=== PATIENT | male | born 1955 | race American Indian/Alaskan Native ===

== ENCOUNTER 2017-02-15 08:02 | Inpatient (IN) | payer OTHER ==
[2017-02-15 08:03] VITALS: BMI 24.7
[2017-02-15] MEDS ORDERED: Sodium Chloride 0.9% 1,000 ML IV ONE (08:36)
[2017-02-15] MEDS ORDERED: Sodium Chloride 0.9% 1,000 ML ONE ×2 (08:54→10:55)
[2017-02-15] MEDS ORDERED: Morphine 4 MG/ML VIAL ONE ×2 (08:54→10:55)
[2017-02-15 09:13] LABS: LYMPH # 0.6 K/uL (1.0-4.3); NRBC % 0.1 % (0.0-2.0)
--- NOTE | 2017-02-15 09:19 | C.PDOC ---
History Of Present Illness 61 y/o male presents to the ED complaining of headache for several days and bilateral upper arm pain. Patient reports history of stage 4 colon cancer, s/p resection, and states he is undergoing chemotherapy. He notes that 3 weeks ago he was switched to PO chemotherapy and since then he has experienced persistent headache which he thinks may be a side effect. Patient denies dizziness, vision changes, fever, neck pain, chest pain, shortness of breath, abdominal pain, vomiting, or diarrhea. Time Seen by Provider: 02/15/17 08:05 Chief Complaint (Nursing): Headache History Per: Patient History/Exam Limitations: no limitations Onset/Duration Of Symptoms: Days, Gradual, Persistent Current Symptoms Are (Timing): Still Present Recent travel outside of the [place]: No Past Medical History Reviewed: Historical Data, Nursing Documentation, Vital Signs Vital Signs: Last Vital Signs Temp 97.4 F L 02/15/17 08:09 Pulse 84 02/15/17 08:09 Resp 18 02/15/17 08:09 BP 177/91 H 02/15/17 08:09 Pulse Ox 100 02/15/17 09:25 - Medical History Other PMH: stage 4 colon cancer Surgical History: Appendectomy - [facility] Procedures OTHER LOCAL DESTRUC SKIN (04/05/13) VENOUS CATHETERIZATION NEC (04/05/13) Family History: States: No Known Family Hx - Social History Hx Tobacco Use: Yes (heavy smoker) Hx Alcohol Use: Yes (social) Hx Substance Use: Yes (marijuana) - Immunization History Hx Tetanus Toxoid Vaccination: No Hx Influenza Vaccination: No Hx Pneumococcal Vaccination: No Review Of Systems Except As Marked, All Systems Reviewed And Found Negative. Constitutional: Negative for: Fever Eyes: Negative for: Vision Change Cardiovascular: Negative for: Chest Pain Respiratory: Negative for: Shortness of Breath Gastrointestinal: Negative for: Vomiting, Abdominal Pain, Diarrhea Musculoskeletal: Positive for: Arm Pain (bilateral). Negative for: Neck Pain Neurological: Positive for: Headache. Negative for: Dizziness Physical Exam - Physical Exam Appears: Non-toxic, No Acute Distress, Other (in mild pain; cachectic) Skin: Normal Color, Warm, Dry, No Rash Head: Atraumatic, Normacephalic Eye(s): bilateral: Normal Inspection, PERRL, EOMI Neck: Normal ROM, Supple Chest: Symmetrical Cardiovascular: Rhythm Regular Respiratory: Normal Breath Sounds, No Rales, No Rhonchi, No Wheezing Gastrointestinal/Abdominal: Soft, No Tenderness, No Guarding, No Rebound, Other (well-healed midline surgical scar; large palpable mass under umbilicus) Extremity: Normal ROM, Tenderness (diffuse, upper arms), No Deformity, No Swelling, No Other (erythema) Pulses: Left Radial: Normal, Right Radial: Normal Neurological/Psych: Oriented x3, Normal Speech, Normal Cognition, Normal Sensation ED Course And Treatment - Laboratory Results Result Diagrams: 02/15/17 09:09 02/15/17 09:09 O2 Sat by Pulse Oximetry: 100 (ra) Pulse Ox Interpretation: Normal Progress Note: Blood work and urinalysis were ordered. Patient was treated with Morphine IVP and IV fluids. 11:30AM- Patient's oncologist Dr. Drake has seen patient in ED, would like him admitted for pain control, hydration under hospitalist service. - Scribe Statement The provider has reviewed the documentation as recorded by the Scribe (Marielle Morales) Provider Attestation: All medical record entries made by the Scribe were at my direction and personally dictated by me. I have reviewed the chart and agree that the record accurately reflects my personal performance of the history, physical exam, medical decision making, and the department course for this patient. I have also personally directed, reviewed, and agree with the discharge instructions and disposition.
[2017-02-15 09:21] LABS: CHLORIDE 93 mmol/L (98-107); POTASSIUM 4.3 mmol/L (3.6-5.2); SODIUM 135 mmol/L (132-148)
[2017-02-15 09:23] LABS: ALKALINE PHOSPHATASE 102 U/L (38-126); AST/SGOT 34 U/L (17-59); BILIRUBIN,TOTAL 0.6 mg/dL (0.2-1.3); CARBON DIOXIDE 27 mmol/L (22-30); GFR AFRICAN-AMERICAN > 60; TOTAL PROTEIN 8.7 g/dL (6.3-8.3)
[2017-02-15 09:24] LABS: ALB/GLOB RATIO 0.7 (1.0-2.1); ALT/SGPT 15 U/L (21-72); BLOOD UREA NITROGEN 12 mg/dL (9-20); CALCIUM 8.7 mg/dl (8.6-10.4); GLUCOSE,RANDOM 110 mg/dL (75-110)
[2017-02-15 09:26] LABS: BASO % 0.7 % (0.0-2.0); EOS % 0.3 % (0.0-4.0); HEMATOCRIT 35.3 % (35.0-51.0); LYMPH % 9.5 % (20.0-40.0); MEAN CORPUSCULAR HEMOGLOBIN 26.1 pg (27.0-31.0); MEAN CORPUSCULAR HGB CONC 33.5 g/dL (33.0-37.0); MEAN PLATELET VOLUME 7.1 fL (7.2-11.7); MONO # 0.4 K/uL (0.0-0.8); MONO % 5.7 % (0.0-10.0); PLATELET COUNT 374 K/uL (130-400); RED CELL DISTRIBUTION WIDTH 20.5 % (11.5-14.5); WHITE BLOOD COUNT 6.6 K/uL (4.8-10.8)
[2017-02-15 09:32] LABS: MEAN CELL VOLUME 77.9 fL (80.0-94.0)
[2017-02-15 10:03] LABS: EOSINOPHIL 2 % (0-4); NEUTROPHIL 72 % (50-75); TOTAL CELLS COUNTED 100
[2017-02-15] MEDS ORDERED: Sodium Chloride 0.9% 500 ML IV ONE (10:33)
[2017-02-15] MEDS ORDERED: Oxycodone/Acetaminophen 5/325 mg Tab ONE (12:27)
[2017-02-15] MEDS: Oxycodone/Acetaminophen 5/325 mg Tab PO PRN ×3 (12:32→21:20)
[2017-02-15 12:37] LABS: RBC URINE 49 /hpf (0-3); URINE BACTERIA RARE (<OCC); URINE BILIRUBIN NEGATIVE (NEGATIVE); URINE BLOOD 2+ (NEGATIVE); URINE COLOR Straw (YELLOW); URINE GLUCOSE (UA) NORMAL (Normal); URINE KETONE NEGATIVE (NEGATIVE); URINE LEUKOCYTE ESTERASE NEG Leu/uL (Negative); URINE PROTEIN NEGATIVE (NEGATIVE); URINE UROBILINOGEN NORMAL mg/dL (0.2-1.0); WBC URINE 1 /hpf (0-5)
--- NOTE | 2017-02-15 15:55 | CON ---
DATE: 02/15/2017 REASON FOR CONSULTATION: Metastatic colon cancer. HISTORY OF PRESENT ILLNESS: This is a 61-year-old male, well known to me for the past 3 years, who w as started on chemotherapy for metastatic colon cancer in 2013, 4 years ago. The patient has been to lerating his chemotherapy well and was doing well when until more recently he was found to have progr ession of disease on his last chemotherapy regimen, and about 3 weeks ago, it was changed to Stivarga chemotherapy. Since then, he has been having some headache, weakness, and inability to walk. The p atient quit his job yesterday. Also feels very tired and complains of aches and pains throughout his body. PAST MEDICAL HISTORY: Of hypertension and metastatic colon cancer. PAST SURGICAL HISTORY: and appendectomy. The patient says he has been eating well, but has been losing weight. ALLERGIES: No known drug allergies. MEDICATIONS AT HOME: Only on Stivarga and Motrin and also for constipation, as-needed basis. PHYSICAL EXAMINATION VITAL SIGNS: Temperature is 97.4, blood pressure is 180/90, pulse of 80, respirations 18. HEAD, EARS, EYES, NOSE, AND THROAT: Pale. No scleral icterus was seen. NECK: Supple. CHEST: Bilateral air entry is fair. CARDIOVASCULAR: S1 and S2. Regular rate and rhythm. ABDOMEN: Distended, hard with metastatic disease. EXTREMITIES: Emaciated. LABORATORY DATA: Show a white count of 6.6, hemoglobin of 11.8, platelets of 374. BUN of 12, creati nine of 0.7. ASSESSMENT AND PLAN: A 61-year-old male with metastatic disease, colon cancer, appears to be ending his treatment at this time. The patient seems to be progressing on all kinds of chemotherapy. This was discussed with him. His weakness, pain are all related to progression of his cancer. Hospice wa s offered to the patient, but he does not want that at this time. He wants to discuss this with his daughters, who both are at bedside, and let me know of his choice. The patient will be admitted for pain control. We will start him on fentanyl 25 mcg subcutaneous every 72 hours and also Percocet 5/3 25 mg p.o. every 4 hours for breakthrough pain. Depending on the results of that, we will make furth er decisions. We will await the patient's decision for further disposition. We will admit under hos pitalist. Thank you for the consult. We will follow the patient with you. Erica Drake MD cc: [id number] TT: 02/15/2017 15:54:25 Confirmation # [id number] Dictation # [id number] fn
[2017-02-15] MEDS: HYDROmorphone 0.5 mg/0.5 ml ISec IVP PRN ×2 (16:12→19:55)
[2017-02-15] MEDS ORDERED: Sodium Chloride Nasal 0.65% Soln (30ml) NAS PRN (16:30)
--- NOTE | 2017-02-15 16:36 | CP.PCM.HP ---
History of Present Illness - History of Present Illness History of Present Illness: Internal medicine H & P for Dr. Kevon Nash, PGY-1 Pt S & E at bedside. 61M w/PMH sig for colon CA s/p resection, currently on chemo admitted for abdominal pain, B/L upper extremity pain. Patient reports he has been treated for Colon CA x 3 yrs, recently switching from IV chemo to PO chemo 3 wks ago. Since that time, patient has noted increasing symptoms attributable to side effects of PO chemo drugs. Patient states that for past 2 days, he has had a throbbing headache, abdominal pain - that was relieved when pt moved his bowels today, Low back pain, and B/L medial upper extremity pain. Pain is severe, "pins/needles" sensation, radiates down to elbow, constant. No alleviating or aggravating factors identified. Pt attempted pain relief with Advil and Ibuprofen without resolution. Pain has been so intense pt has been unable to sleep x 2 days. Admits to numbness/tingling of hands/feet (chronic since onset of chemo), abdominal pain (relieved by BM), recent weight loss (30 lbs/1mo), poor appetite, dry nasal passages. Denies N/V/F/C, SOB, CP, diarrhea, sore throat, cough, rhinnorhea, cough. PMH: Colon CA - Stage IV PSH: appendectomy (2013), colon resection (2013) All: NKA SH: Admits to social ETOH use (avg 10-20 drinks per mo), admits to tobacco use 1 /2ppd x 45 yrs, admits to occasional MJ use. PMD: [facility]: [facility] in Onc: Drake Present on Admission - Present on Admission Any Indicators Present on Admission: No History of DVT/PE: No History of Uncontrolled Diabetes: No Urinary Catheter: No Decubitus Ulcer Present: No Review of Systems - Review of Systems All systems: reviewed and no additional remarkable complaints except - Constitutional Constitutional: Headache, Weight Loss. absent: Chills, Fever, Increased Appetite, Weakness - EENT Eyes: absent: Change in Vision Ears: absent: Dizziness Nose/Mouth/Throat: absent: Sore Throat - Cardiovascular Cardiovascular: absent: Chest Pain, Diaphoresis, Palpitations - Respiratory Respiratory: absent: Cough - Gastrointestinal Gastrointestinal: Abdominal Pain, Constipation (occasional). absent: Nausea, Vomiting - Genitourinary Genitourinary: absent: Change in Urinary Stream, Dysuria - Musculoskeletal Musculoskeletal: Numbness, Tingling - Neurological Neurological: Numbness, Paresthesias, Tingling. absent: Dizziness - Psychiatric Psychiatric: Abnormal Sleep Pattern Past Patient History - Past Medical History & Family History Past Medical History?: Yes - Past Social History Smoking Status: Heavy Smoker > 10 Cigarettes Daily - CARDIAC Hx Cardiac Disorders: No - PULMONARY Hx Respiratory Disorders: No - NEUROLOGICAL Hx Neurological Disorder: No - HEENT Hx HEENT Problems: No - RENAL Hx Chronic Kidney Disease: No - ENDOCRINE/METABOLIC Hx Endocrine Disorders: No - HEMATOLOGICAL/ONCOLOGICAL Hx Blood Disorders: Yes Hx Cancer: Yes Hx Chemotherapy: Yes - INTEGUMENTARY Hx Dermatological Problems: No - MUSCULOSKELETAL/RHEUMATOLOGICAL Hx Falls: No - GASTROINTESTINAL Hx Gastrointestinal Disorders: Yes Hx Bowel Surgery: Yes Other/Comment: hx; Colon Cancer. On chemotherapy second cycle - GENITOURINARY/GYNECOLOGICAL Hx Genitourinary Disorders: No - PSYCHIATRIC Hx Substance Use: Yes (marijuana) - SURGICAL HISTORY Hx Appendectomy: Yes - ANESTHESIA Hx Anesthesia: Yes Hx Anesthesia Reactions: No Hx Malignant Hyperthermia: No Meds Allergies/Adverse Reactions: Allergies Allergy/AdvReac Type Severity Reaction Status Date / Time No Known Allergies Allergy Verified 02/15/17 08:13 Physical Exam - Constitutional Appears: Non-toxic, No Acute Distress, Cachectic - Head Exam Head Exam: ATRAUMATIC, NORMAL INSPECTION, NORMOCEPHALIC - Eye Exam Eye Exam: EOMI, Normal appearance, PERRL Pupil Exam: NORMAL ACCOMODATION, PERRL - ENT Exam ENT Exam: Mucous Membranes Dry, Normal Exam - Neck Exam Neck exam: Positive for: Full Rom, Normal Inspection - Respiratory Exam Respiratory Exam: Clear to Auscultation Bilateral, NORMAL BREATHING PATTERN. absent: Rales, Rhonchi, Wheezes, Respiratory Distress, Stridor - Cardiovascular Exam Cardiovascular Exam: REGULAR RHYTHM, +S1, +S2 - GI/Abdominal Exam GI & Abdominal Exam: Hyperactive Bowel Sounds, Mass (periumbical in LLQ more, hard 3 x 4 cm protruberant mass), Soft. absent: Distended, Firm, Guarding, Hernia, Pulsatile Mass, Rebound, Rigid, Tenderness - Extremities Exam Extremities exam: Positive for: full ROM, normal inspection - Back Exam Back exam: FULL ROM, NORMAL INSPECTION. absent: paraspinal tenderness, tenderness - Neurological Exam Neurological exam: Alert, CN II-XII Intact, Oriented x3 - Psychiatric Exam Psychiatric exam: Normal Affect, Normal Mood - Skin Skin Exam: Dry, Intact, Normal Color, Warm Results - Vital Signs Recent Vital Signs: Last Vital Signs Temp 98 F 02/15/17 15:23 Pulse 84 02/15/17 15:23 Resp 20 02/15/17 15:23 BP 209/101 H 02/15/17 15:23 Pulse Ox 98 02/15/17 15:23 - Labs Result Diagrams: 02/15/17 09:09 02/15/17 09:09 Labs: Laboratory Results - last 24 hr 02/15/17 15:22 POC Glucose (mg/dL) 118 H Assessment & Plan - Assessment and Plan (Free Text) Assessment: Colon CA/Abdominal pain Admit to med-surg VS Q4H No leukocytosis Bandemia - 12 Electrolytes WNL U/A pos for 2+ blood IVF Colace Dilaudid 0.5mg Q4H PRN Fentanyl patch Q72H Percocet 1 tab Q4H PRN Onc following- Drake Paresthesias Gabapentin 100mg TID Malnutrition/wt loss/poor appetite Boost supplements 6 small meals per day- HHD Marinol Dry mucus membranes Nasal spray PRN PO care High blood pressure BP 209/101 Monitor no previous history of HTN as per pt GI/DVT ppx Pepcid Heparin SCDs Dispo Full Code Eldest daughter- Isis to be medical decision maker if pt incapcitated Pain mgmt Activity as tolerated OOBTC Possible d/c tomorrow DW attending - Date & Time Date: 02/15/17 Time: 15:30
[2017-02-15] MEDS: Sodium Chloride 0.9% 1,000 ML IV SCH (16:42)
[2017-02-16] MEDS: Sodium Chloride 0.9% 1,000 ML IV SCH ×4 (02:30→19:56)
[2017-02-16] MEDS: HYDROmorphone 0.5 mg/0.5 ml ISec IVP PRN ×6 (03:40→21:20)
[2017-02-16] MEDS: Oxycodone/Acetaminophen 5/325 mg Tab PO PRN ×3 (07:30→19:51)
[2017-02-16 07:34] LABS: BASO % 0.5 % (0.0-2.0); EOS % 0.2 % (0.0-4.0); HEMATOCRIT 34.8 % (35.0-51.0); LYMPH % 16.2 % (20.0-40.0); MEAN CELL VOLUME 77.8 fL (80.0-94.0); MEAN CORPUSCULAR HEMOGLOBIN 25.1 pg (27.0-31.0); MEAN CORPUSCULAR HGB CONC 32.2 g/dL (33.0-37.0); MEAN PLATELET VOLUME 7.6 fL (7.2-11.7); MONO # 0.4 K/uL (0.0-0.8); MONO % 5.9 % (0.0-10.0); NRBC % 0.1 % (0.0-2.0); RED CELL DISTRIBUTION WIDTH 20.5 % (11.5-14.5); WHITE BLOOD COUNT 6.4 K/uL (4.8-10.8)
[2017-02-16 08:01] LABS: CHLORIDE 94 mmol/L (98-107)
[2017-02-16 08:02] LABS: POTASSIUM 4.3 mmol/L (3.6-5.2); SODIUM 129 mmol/L (132-148)
[2017-02-16 08:04] LABS: GFR AFRICAN-AMERICAN > 60
[2017-02-16 08:05] LABS: ALB/GLOB RATIO 0.7 (1.0-2.1); ALKALINE PHOSPHATASE 95 U/L (38-126); ALT/SGPT 19 U/L (21-72); AST/SGOT 34 U/L (17-59); BILIRUBIN,TOTAL 0.5 mg/dL (0.2-1.3); BLOOD UREA NITROGEN 8 mg/dL (9-20); CALCIUM 8.3 mg/dl (8.6-10.4); CARBON DIOXIDE 20 mmol/L (22-30); GLUCOSE,RANDOM 114 mg/dL (75-110); TOTAL PROTEIN 8.2 g/dL (6.3-8.3)
--- NOTE | 2017-02-16 11:19 | PN ---
DATE: 02/16/2017 SUBJECTIVE: The patient with metastatic colon cancer, feels much better today after pain management. OBJECTIVE: VITAL SIGNS: Show temperature of 97, blood pressure is 144/76, pulse 72, respirations 18. HEENT: PERRLA. No scleral icterus is seen. NECK: Supple. CHEST: Bilateral air entry is decreased. CARDIOVASCULAR: S1, S2, regular rate and rhythm. ABDOMEN: Distended. HEART: Full of metastatic disease. EXTREMITIES: Cachectic. LABORATORY DATA: Labs show white count of 6.4, hemoglobin of 11.2, platelets of 392. ASSESSMENT AND PLAN: A 61-year-old male with metastatic colon cancer. The patient needs pain management at this time, whi ch is ongoing. Once the patient is adequately controlled with the pain, he can be discharged on fent anyl and Percocet as an outpatient. We will follow up as outpatient. Thank you for the consult. We will follow the patient with you. Erica Drake MD cc: [id number] TT: 02/16/2017 11:18:23 Confirmation # [id number] Dictation # [id number] an
[2017-02-16] MEDS: oxyCODONE 10 mg ER Tab (oxyCONTIN) PO SCH ×2 (12:26→21:20)
[2017-02-16] MEDS ORDERED: Iohexol 350mg/ml 100 ML ONE (12:48)
--- NOTE | 2017-02-16 14:27 | CT ---
PROCEDURE: CT HEAD WITH AND WITHOUT CONTRAST HISTORY: R/O mets COMPARISON: None available. TECHNIQUE: Axial computed tomography images were obtained through the head/brain with and without intravenous contrast enhancement. Contrast dose: 100 mL Omnipaque 350. Radiation dose: Total exam DLP = 783.19 mGy-cm. FINDINGS: HEMORRHAGE: No intracranial hemorrhage. BRAIN: No mass, mass effect or edema. No abnormal intracranial enhancement. No atrophy or chronic microvascular ischemic changes. VENTRICLES: Unremarkable. No hydrocephalus. CALVARIUM: Unremarkable. SINUSES: Unremarkable as visualized. No significant inflammatory changes. MASTOID AIR CELLS: Unremarkable as visualized. No mastoid effusion. OTHER FINDINGS: None. IMPRESSION: No evidence of acute pathology in the brain. No evidence of enhancing mass lesion mass effect or midline shift.
--- NOTE | 2017-02-16 15:02 | CT ---
PROCEDURE: CT Thoracic Spine with contrast HISTORY: R/o mets COMPARISON: None. TECHNIQUE: Axial computed tomography images were obtained of the thoracic spine were obtained, following administration of intravenous iodinated contrast. Coronal and sagittal reformatted images were created and reviewed. Intravenous contrast dose: [address] of the head was obtained concurrently and reported separately. Radiation dose: Total exam DLP = 947.7 mGy-cm. FINDINGS: VERTEBRAE: No evidence of acute fracture or destructive bony lesion. Normal alignment of the thoracic vertebrae.. DISCS/SPINAL CANAL/NEURAL FORAMINA: Within the limits of the CT technique, no disc herniation seen. Moderate degenerative disc changes and multilevel small osteophyte formation. No central canal or neural foraminal stenosis.. PARASPINAL SOFT TISSUES: There is 1.2 centimeter noncalcified nodule adjacent to the left hilum image 54 series 2 may represent prominent lymph node versus lung nodule. No evidence of pleural effusion or pneumothorax in the visualized portion of the chest.. The thyroid gland is mildly enlarged. There is 1.5 millimeter low density nodule at the left thyroid lobe. ENHANCEMENT: No evidence of enhancing mass lesion at or adjacent to the thoracic spine noted in this exam. OTHER FINDINGS: Unremarkable. IMPRESSION: No CT evidence of destructive enhancing mass lesion at the thoracic spine to suggest osseous metastasis. [id number] degenerative disc changes. Incidentally noted is 1.2 millimeter nodule or prominent lymph node adjacent to the left hilum. Mildly enlarged thyroid gland. 1.4 centimeter low-attenuation nodule at the left thyroid lobe.
--- NOTE | 2017-02-16 15:53 | CP.PCM.PN ---
Subjective - Date & Time of Evaluation Date of Evaluation: 02/16/17 Time of Evaluation: 10:45 - Subjective Subjective: Internal medicine progress note for Dr. Clemente Nash, PGY-1 Pt S & E at bedside. Pt reports resolution of B/L upper/medial arm pain, increased low back pain - was instructed on how to ask for pain regimen. Pt is tolerating diet, slept ok until aroused by back pain. Continues with mild headache. Had nausea after a pain medication was administered - resolved. Denies N/V/F/C, SOB, CP, abdominal pain. Objective - Vital Signs/Intake and Output Vital Signs (last 24 hours): Temp Pulse Resp BP Pulse Ox 97.6 F 73 20 195/93 H 100 02/16/17 08:33 02/16/17 08:33 02/16/17 08:33 02/16/17 08:33 02/16/17 08:33 - Medications Medications: Current Medications Acetaminophen (Tylenol 325mg Tab) 650 mg PO Q6 PRN PRN Reason: Headache Acetaminophen (Tylenol 325mg Tab) 650 mg PO Q6 PRN PRN Reason: Pain, Mild (1-3) Dronabinol (Marinol) 2.5 mg PO BID [facility] Last Admin: 02/16/17 09:30 Dose: 2.5 mg Famotidine (Pepcid) 20 mg PO BID [facility] Last Admin: 02/16/17 09:30 Dose: 20 mg Fentanyl (Duragesic) 1 patch TD Q72H [facility] Last Admin: 02/15/17 14:11 Dose: 1 patch Gabapentin (Neurontin) 100 mg PO TID [facility] Last Admin: 02/16/17 14:06 Dose: 100 mg Heparin Sodium (Porcine) (Heparin) 5,000 units SC Q12 [facility] Last Admin: 02/16/17 09:30 Dose: 5,000 units Hydromorphone HCl (Dilaudid) 0.5 mg IVP Q4H PRN PRN Reason: Pain, severe (8-10) Last Admin: 02/16/17 12:11 Dose: 0.5 mg Sodium Chloride (Sodium Chloride 0.9%) 1,000 mls @ 100 mls/hr IV .Q10H [facility] Last Admin: 02/16/17 14:03 Dose: Not Given Ondansetron HCl (Zofran Inj) 4 mg IVP Q6 PRN PRN Reason: Nausea/Vomiting Last Admin: 02/16/17 08:25 Dose: 4 mg Oxycodone HCl (Oxycontin Extended Release Tab) 10 mg PO Q12 [facility] Stop: 02/19/17 11:46 Last Admin: 02/16/17 12:26 Dose: Not Given Oxycodone/Acetaminophen (Percocet 5/325 Mg Tab) 1 tab PO Q4H PRN PRN Reason: Pain, Mild (1-3) Stop: 02/18/17 12:13 Last Admin: 02/16/17 11:12 Dose: 1 tab Sodium Chloride (Garland Baby Saline 30 Ml) 0 ml AMANDA Q4H PRN PRN Reason: Dry nasal passages Last Admin: 02/15/17 22:24 Dose: 1 u - Labs Labs: 02/16/17 07:26 02/16/17 07:26 - Constitutional Appears: Non-toxic, No Acute Distress, Cachectic - Head Exam Head Exam: ATRAUMATIC, NORMAL INSPECTION, NORMOCEPHALIC - Eye Exam Eye Exam: EOMI, Normal appearance, PERRL Pupil Exam: NORMAL ACCOMODATION, PERRL - ENT Exam ENT Exam: Mucous Membranes Moist, Normal Exam - Neck Exam Neck Exam: Full ROM, Normal Inspection - Respiratory Exam Respiratory Exam: Clear to Ausculation Bilateral, NORMAL BREATHING PATTERN. absent: Chest Wall Tenderness, Decreased Breath Sounds, Rhonchi, Wheezes, Stridor Additional comments: Left chest wall with portacath under skin- non tender, no erythema or drainage. - Cardiovascular Exam Cardiovascular Exam: REGULAR RHYTHM, +S1, +S2 - GI/Abdominal Exam GI & Abdominal Exam: Soft, Mass (3 x 4 cm hard mass periumbilical at the 5 o' clock position, non tender.), Normal Bowel Sounds. absent: Distended, Firm, Guarding, Rigid, Tenderness - Extremities Exam Extremities Exam: Full ROM, Normal Inspection - Back Exam Back Exam: NORMAL INSPECTION. absent: tenderness - Neurological Exam Neurological Exam: Alert, Awake, CN II-XII Intact, Oriented x3 Neuro motor strength exam: Left Upper Extremity: 5, Right Upper Extremity: 5, Left Lower Extremity: 5, Right Lower Extremity: 5 - Psychiatric Exam Psychiatric exam: Normal Affect, Normal Mood - Skin Skin Exam: Dry, Intact, Normal Color, Warm Assessment and Plan - Assessment and Plan (Free Text) Assessment: Colon CA/Abdominal pain No leukocytosis Bandemia - 12 Electrolytes WNL U/A pos for 2+ blood IVF Colace Dilaudid 0.5mg Q4H PRN severe pain Fentanyl patch Q72H Percocet 1 tab Q4H PRN moderate pain Started Oxycontin extended release 10mg Q12H FELIPE Tylenol 650 mg PRN mild pain Onc following- Drake CT spine neg for mets, findings of No CT evidence of destructive enhancing mass lesion at the thoracic spine to suggest osseous metastasis. Mild-to- moderate degenerative disc changes. Incidentally noted is 1.2 millimeter nodule or prominent lymph node adjacent to the left hilum. Mildly enlarged thyroid gland. 1.4 centimeter low-attenuation nodule at the left thyroid lobe. CT brain neg for mets Paresthesias/Back pain Gabapentin 100mg TID Heating pad BenGay to low back- topical Pain mgmt as above Malnutrition/wt loss/poor appetite Boost supplements 6 small meals per day- HHD Marinol Dry mucus membranes Nasal spray PRN PO care High blood pressure BP 209/101 Started amlodipine 5mg daily no previous history of HTN as per pt Monitor GI/DVT ppx Pepcid Heparin SCDs Dispo Full Code Eldest daughter- Isis to be medical decision maker if pt incapcitated Pain mgmt Activity as tolerated OOBTC Possible d/c tomorrow DW attending
[2017-02-16] MEDS: Capsaicin 0.025% Cream (60 gm) TOP SCH (19:53)
[2017-02-17] MEDS: HYDROmorphone 0.5 mg/0.5 ml ISec IVP PRN ×3 (01:13→11:14)
[2017-02-17 07:30] LABS: BASO % 0.5 % (0.0-2.0); EOS % 0.2 % (0.0-4.0); HEMATOCRIT 33.6 % (35.0-51.0); LYMPH # 1.2 K/uL (1.0-4.3); LYMPH % 18.4 % (20.0-40.0); MEAN CELL VOLUME 77.3 fL (80.0-94.0); MEAN CORPUSCULAR HEMOGLOBIN 25.2 pg (27.0-31.0); MEAN CORPUSCULAR HGB CONC 32.5 g/dL (33.0-37.0); MEAN PLATELET VOLUME 7.3 fL (7.2-11.7); MONO # 0.6 K/uL (0.0-0.8); MONO % 8.6 % (0.0-10.0); RED CELL DISTRIBUTION WIDTH 20.3 % (11.5-14.5); WHITE BLOOD COUNT 6.5 K/uL (4.8-10.8)
[2017-02-17 07:40] LABS: CHLORIDE 91 mmol/L (98-107); SODIUM 129 mmol/L (132-148)
[2017-02-17 07:41] LABS: GFR AFRICAN-AMERICAN > 60; POTASSIUM 4.3 mmol/L (3.6-5.2)
[2017-02-17 07:42] LABS: ALB/GLOB RATIO 0.8 (1.0-2.1); ALKALINE PHOSPHATASE 96 U/L (38-126); ALT/SGPT 9 U/L (21-72); AST/SGOT 30 U/L (17-59); BILIRUBIN,TOTAL 0.4 mg/dL (0.2-1.3); BLOOD UREA NITROGEN 11 mg/dL (9-20); CARBON DIOXIDE 25 mmol/L (22-30); GLUCOSE,RANDOM 108 mg/dL (75-110); TOTAL PROTEIN 7.9 g/dL (6.3-8.3)
[2017-02-17 07:43] LABS: CALCIUM 8.7 mg/dl (8.6-10.4)
[2017-02-17 07:47] VITALS: PULSE 99; O2SAT 96
[2017-02-17] MEDS: Oxycodone/Acetaminophen 5/325 mg Tab PO PRN ×2 (08:02→13:43)
[2017-02-17] MEDS ORDERED: Magnesium Citrate Oral SOL (300 ml) PO ONE (09:03)
[2017-02-17] MEDS: oxyCODONE 10 mg ER Tab (oxyCONTIN) PO SCH (10:00)
[2017-02-17] MEDS: Capsaicin 0.025% Cream (60 gm) TOP SCH ×2 (10:01→13:45)
--- NOTE | 2017-02-17 11:44 | PN ---
DATE: 02/17/2017 The patient feels much better, denies any complaints. OBJECTIVE: VITAL SIGNS: Temperature 97.6, blood pressure is 190/990, pulse 70, respirations 20. HEENT: ____ No sclera icterus is seen. NECK: Supple. CHEST: Bilateral air entry is fair. CARDIOVASCULAR: S1, S2, regular rate and rhythm. ASSESSMENT AND PLAN: Metastatic colon cancer, patient with pain. Now pain is much controlled. Will discharge on fentanyl, Percocet. Case was discussed with . ____. Will follow patient as outpatie nt. Erica Drake MD cc: [id number] TT: 02/17/2017 11:44:25 Confirmation # [id number] Dictation # [id number]
[2017-02-17] MEDS: Sodium Chloride 0.9% 1,000 ML IV SCH (13:43)
--- NOTE | 2017-02-17 15:18 | CP.PCM.DIS ---
Provider - Provider Date of Admission: 02/15/17 12:44 Attending physician: Riley Bar MD Primary care physician: Taras Consults: Kriss Drake Time Spent in preparation of Discharge (in minutes): 60 Diagnosis - Discharge Diagnosis (1) Headache Status: Acute (2) Paresthesia and pain of both upper extremities Status: Acute Hospital Course - Lab Results Lab Results: Most Recent Lab Values WBC 6.5 K/uL (4.8-10.8) 02/17/17 07:11 RBC 4.35 Mil/uL (4.40-5.90) L 02/17/17 07:11 Hgb 10.9 g/dL (12.0-18.0) L 02/17/17 07:11 Hct 33.6 % (35.0-51.0) L 02/17/17 07:11 MCV 77.3 fL (80.0-94.0) L 02/17/17 07:11 MCH 25.2 pg (27.0-31.0) L 02/17/17 07:11 MCHC 32.5 g/dL (33.0-37.0) L 02/17/17 07:11 RDW 20.3 % (11.5-14.5) H 02/17/17 07:11 Plt Count 408 K/uL (130-400) H 02/17/17 07:11 MPV 7.3 fL (7.2-11.7) 02/17/17 07:11 Neut % (Auto) 72.3 % (50.0-75.0) 02/17/17 07:11 Lymph % (Auto) 18.4 % (20.0-40.0) L 02/17/17 07:11 [place] % (Auto) 8.6 % (0.0-10.0) 02/17/17 07:11 Eos % (Auto) 0.2 % (0.0-4.0) 02/17/17 07:11 Baso % (Auto) 0.5 % (0.0-2.0) 02/17/17 07:11 Neut # 4.7 K/uL (1.8-7.0) 02/17/17 07:11 Lymph # 1.2 K/uL (1.0-4.3) 02/17/17 07:11 Dillon # 0.6 K/uL (0.0-0.8) 02/17/17 07:11 Eos # 0.0 K/uL (0.0-0.7) 02/17/17 07:11 Baso # 0.0 K/uL (0.0-0.2) 02/17/17 07:11 Neutrophils % (Manual) 72 % (50-75) 02/15/17 09:09 Band Neutrophils % 12 % (0-2) H* 02/15/17 09:09 Lymphocytes % (Manual) 9 % (20-40) L 02/15/17 09:09 Monocytes % (Manual) 5 % (0-10) 02/15/17 09:09 Eosinophils % (Manual) 2 % (0-4) 02/15/17 09:09 Platelet Estimate Normal (NORMAL) 02/15/17 09:09 Poikilocytosis (manual Slight 02/15/17 09:09 Anisocytosis (manual) Moderate 02/15/17 09:09 Target Cells Slight 02/15/17 09:09 Sodium 129 mmol/L (132-148) L 02/17/17 07:11 Potassium 4.3 mmol/L (3.6-5.2) 02/17/17 07:11 Chloride 91 mmol/L (98-107) L 02/17/17 07:11 Carbon Dioxide 25 mmol/L (22-30) 02/17/17 07:11 Anion Gap 17 (10-20) 02/17/17 07:11 BUN 11 mg/dL (9-20) 02/17/17 07:11 Creatinine 0.7 MG/DL (0.8-1.5) L 02/17/17 07:11 Est GFR ( Amer) > 60 02/17/17 07:11 Est GFR (Non-Af Amer) > 60 02/17/17 07:11 POC Glucose (mg/dL) 118 mg/dL (65-110) H 02/15/17 15:22 Random Glucose 108 mg/dL (75-110) 02/17/17 07:11 Calcium 8.7 mg/dl (8.6-10.4) 02/17/17 07:11 Total Bilirubin 0.4 mg/dL (0.2-1.3) 02/17/17 07:11 AST 30 U/L (17-59) 02/17/17 07:11 ALT 9 U/L (21-72) L D 02/17/17 07:11 Alkaline Phosphatase 96 U/L (38-126) 02/17/17 07:11 Total Creatine Kinase 198 U/L (55-170) H 02/15/17 09:09 Total Protein 7.9 g/dL (6.3-8.3) 02/17/17 07:11 Albumin 3.4 g/dL (3.5-5.0) L 02/17/17 07:11 Globulin 4.5 gm/dL (2.2-3.9) H 02/17/17 07:11 Albumin/Globulin Ratio 0.8 (1.0-2.1) L 02/17/17 07:11 Urine Color Straw (YELLOW) 02/15/17 12:17 Urine Clarity Clear (Clear) 02/15/17 12:17 Urine pH 8.0 (5.0-8.0) 02/15/17 12:17 Ur Specific [place] 1.006 (1.003-1.030) 02/15/17 12:17 Urine Protein Negative mg/dL (NEGATIVE) 02/15/17 12:17 Urine Glucose (UA) Normal mg/dL (Normal) 02/15/17 12:17 Urine Ketones Negative mg/dL (NEGATIVE) 02/15/17 12:17 Urine Blood 2+ (NEGATIVE) H 02/15/17 12:17 Urine Nitrate Negative (NEGATIVE) 02/15/17 12:17 Urine Bilirubin Negative (NEGATIVE) 02/15/17 12:17 Urine Urobilinogen Normal mg/dL (0.2-1.0) 02/15/17 12:17 Ur Leukocyte Esterase Neg Adela/uL (Negative) 02/15/17 12:17 Urine WBC (Auto) 1 /hpf (0-5) 02/15/17 12:17 Urine RBC (Auto) 49 /hpf (0-3) H 02/15/17 12:17 Ur Squamous Epith Cells 1 /hpf (0-5) 02/15/17 12:17 Urine Bacteria Rare (<OCC) 02/15/17 12:17 - Hospital Course Hospital Course: 61M w/PMH sig for colon CA s/p resection, currently on chemo admitted for abdominal pain, B/L upper extremity pain. Patient reports he has been treated for Colon CA x 3 yrs, recently switching from IV chemo to PO chemo 3 wks ago. Since that time, patient has noted increasing symptoms attributable to side effects of PO chemo drugs. Patient states that for past 2 days, he has had a throbbing headache, abdominal pain - that was relieved when pt moved his bowels today, Low back pain, and B/L medial upper extremity pain. Pain is severe, "pins/needles" sensation, radiates down to elbow, constant. No alleviating or aggravating factors identified. Pt attempted pain relief with Advil and Ibuprofen without resolution. Pain has been so intense pt has been unable to sleep x 2 days. Admits to numbness/tingling of hands/feet (chronic since onset of chemo), abdominal pain (relieved by BM), recent weight loss (30 lbs/1mo), poor appetite, dry nasal passages. Denies N/V/F/C, SOB, CP, diarrhea, sore throat, cough, rhinnorhea, cough. Pt w/symptoms concerning for metastatic disease to brain or spinal cord- CT brain and spinal cord ordered- both studies were negative for mets. Pt placed on pain regimen - pain well controlled after modification of pain regimen to include opioid pain medication. Pt seen/evaluated by heme/onc with instructions to follow up as an outpatient for continued chemo and pain regimen management. Pt stable and ready for discharge home as per Dr. Esteves and Dr. Drake (heme/onc) . Diagnoses: Stage IV Colon CA, high blood pressure - Date & Time of H&P Date of H&P: 02/15/17 Time of H&P: 16:34 Discharge Exam - Head Exam Head Exam: ATRAUMATIC, NORMAL INSPECTION, NORMOCEPHALIC Additional comments: cachexic - Eye Exam Eye Exam: EOMI, Normal appearance, PERRL Pupil Exam: NORMAL ACCOMODATION, PERRL - ENT Exam ENT Exam: Mucous Membranes Moist, Normal Exam - Neck Exam Neck exam: Full Rom, Normal Inspection - Respiratory Exam Respiratory Exam: Clear to PA & Lateral, NORMAL BREATHING PATTERN, UNREMARKABLE - Cardiovascular Exam Cardiovascular Exam: REGULAR RHYTHM, +S1, +S2 - GI/Abdominal Exam GI & Abdominal Exam: Normal Bowel Sounds, Soft, Unremarkable. absent: Tenderness - Extremities Exam Extremities exam: full ROM, normal inspection - Back Exam Back exam: NORMAL INSPECTION, tenderness (low back) - Neurological Exam Neurological exam: Alert, CN II-XII Intact, Oriented x3 - Psychiatric Exam Psychiatric exam: Normal Affect, Normal Mood - Skin Skin Exam: Dry, Intact, Normal Color, Warm Discharge Plan - Discharge Medications Prescriptions: Docusate [Colace] 100 mg PO DAILY #30 cap Bisacodyl [Dulcolax] 5 mg PO Q3D #10 tablet. amLODIPine [Norvasc] 5 mg PO DAILY #30 tab - Follow Up Plan Condition: STABLE Disposition: HOME/ ROUTINE Instructions: Narcotic Pain Management (GEN), Back Pain (GEN), Opioid Pain Management (GEN) Additional Instructions: Patient stable and ready for discharge home as per Dr. Esteves. Patient to be follow up with Dr. Drake in one week - she will be able to tailor your pain regimen as needed. Also, follow up with your primary care physician within 1 week of discharge from hospital. You may use BenGay and a heating pad for your low back pain. You are being discharged on pain medications, please be sure to only take them as needed, do not take them if you have problems breathing or feel drowsy. If you take the pain medications, please take the Colace and Dulcolax - these will help prevention constipation caused by the pain medications. Continue to use dietary supplements at home to keep your weight up. Please return to hospital if you have a recurrence of symptoms.
[2017-02-17 16:33] VITALS: BP 119/83; RESP 20; TEMP 98.2
== END 2017-02-17 16:00 | disposition home or self-care (01) | DRG 375 ==
LOC: C.ER 08:02 → C.9E 12:44 → C.5T 13:53
PROVIDERS: ADMIT Internal Medicine Nephrology; ATTEND Internal Medicine Nephrology
DX: C18.9 Malignant neoplasm of colon, unspecified (principal); R51 Headache; R64 Cachexia; E46 Unspecified protein-calorie malnutrition; C79.9 Secondary malignant neoplasm of unspecified site; I10 Essential (primary) hypertension; K59.00 Constipation, unspecified; R63.0 Anorexia; M54.5 Low back pain; R20.9 Unspecified disturbances of skin sensation; M79.602 Pain in left arm; M79.601 Pain in right arm; J34.89 Other specified disorders of nose and nasal sinuses; F17.210 Nicotine dependence, cigarettes, uncomplicated; F12.10 Cannabis abuse, uncomplicated; Z90.49 Acquired absence of other specified parts of digestive tract; F10.10 Alcohol abuse, uncomplicated